=== PATIENT | female | born 1980 | race Caucasian/White ===

== ENCOUNTER 2018-11-29 03:43 | Emergency (ER) | payer SELFPAY ==
[~2018-11-29] VITALS: Ht 160 cm; Wt 59.0 kg
[2018-11-29 03:46] VITALS: BP 104/74; Ht 160 cm; Wt 59.0 kg
[2018-11-29 04:35] LABS: BASOPHILS 0.2 % (0-2); EOSINOPHILS 1.3 % (0-7); HEMATOCRIT 40.7 % (36.0-48.0); HEMOGLOBIN 13.1 g/dL (12-16); LYMPHOCYTES 30.8 % (15-50); MCH 26.7 pg (26.0-34.0); MCHC 32.2 g/dL (31.0-37.0); MCV 83.1 fL (80.0-100.0); MEAN PLATELET VOLUME 9.5 fL (7.4-10.4); MONOCYTES 10.6 % (2-11); NEUTROPHILS 57.1 % (40-80); PLATELET COUNT 297 10x3/uL (130-400); RDW 16.5 % (11.5-14.5); WBC 4.5 10x3/uL (4.8-10.8)
[2018-11-29 04:55] LABS: ANION GAP 12.5 mmol/L (8-16); BILIRUBIN - TOTAL 0.45 mg/dL (0.2-1.3); CALCIUM 8.7 mg/dL (8.5-10.1); CARBON DIOXIDE 28.9 mmol/L (21.0-32.0); POTASSIUM - SERUM 3.4 mmol/L (3.5-5.1)
== END 2018-11-29 05:03 | disposition left against medical advice (07) ==
LOC: D.ER 03:43
PROVIDERS: Family Medicine
DX: F15.129 Other stimulant abuse with intoxication, unspecified (principal)

== ENCOUNTER 2019-06-10 07:04 | Emergency (ER) | payer SELFPAY ==
[~2019-06-10] VITALS: Ht 160 cm; Wt 67.7 kg
[2019-06-10 07:05] VITALS: Ht 160 cm; Wt 67.7 kg
[2019-06-10 07:22] LABS: BASOPHILS 0.4 % (0-2); HEMATOCRIT 40.5 % (36.0-48.0); HEMOGLOBIN 12.7 g/dL (12-16); IMMATURE GRANULOCYTES 0.4 % (0-5); LYMPHOCYTES 41.3 % (15-50); MCH 26.3 pg (26.0-34.0); MCHC 31.4 g/dL (31.0-37.0); MEAN PLATELET VOLUME 9.5 fL (7.4-10.4); MONOCYTES 10.6 % (2-11); NEUTROPHILS 45.3 % (40-80); PLATELET COUNT 299 10x3/uL (130-400); RBC 4.82 10x6/uL (4.00-5.40); RDW 16.1 % (11.5-14.5); WBC 5.4 10x3/uL (4.8-10.8)
[2019-06-10 07:39] LABS: CALC OSMOLALITY 271 mosm/kg (275-300); CALCIUM 8.5 mg/dL (8.5-10.1); CARBON DIOXIDE 21.7 mmol/L (21.0-32.0); CHLORIDE - SERUM 103 mmol/L (98-107); CREATININE - SERUM 0.7 mg/dL (0.6-1.3); GLUCOSE 87 mg/dL (74-106); POTASSIUM - SERUM 3.6 mmol/L (3.5-5.1); SODIUM 137 mmol/L (136-145); UREA NITROGEN 10 mg/dL (7-18); eGFR NON AFRICAN AMERICAN > 90 mL/min (90-120)
[2019-06-10 07:45] LABS: ALKALINE PHOSPHATASE 62 U/L (30-120); ALT (SGPT) 25 U/L (10-68); BILIRUBIN - TOTAL 0.16 mg/dL (0.2-1.3); LIPASE 168 U/L (73-393); PROTEIN - SERUM 7.5 g/dL (6.4-8.2)
[2019-06-10 07:50] LABS: UDS - AMPHET NEGATIVE QUAL (NEGATIVE); UDS - BARB NEGATIVE QUAL (NEGATIVE); UDS - BENZO NEGATIVE QUAL (NEGATIVE); UDS - COCAINE NEGATIVE QUAL (NEGATIVE); UDS - OPIATE NEGATIVE QUAL (NEGATIVE); UDS - PCP NEGATIVE QUAL (NEGATIVE); UDS - THC NEGATIVE QUAL (NEGATIVE)
[2019-06-10 07:56] LABS: BILIRUBIN NEGATIVE (NEGATIVE); GLUCOSE NEGATIVE (NEGATIVE); KETONE NEGATIVE (NEGATIVE); NITRITE NEGATIVE (NEGATIVE); SPECIFIC GRAVITY 1.005 (1.005-1.020); UROBILINOGEN NORMAL (NORMAL)
[2019-06-10 11:30] VITALS: BP 90/64
== END 2019-06-10 12:06 | disposition home or self-care (01) ==
LOC: D.ER 07:04
PROVIDERS: Family Medicine
DX: F10.129 Alcohol abuse with intoxication, unspecified (principal); Z72.0 Tobacco use

== ENCOUNTER 2019-10-11 19:08 | Emergency (ER) | payer SELFPAY ==
[~2019-10-11] VITALS: Ht 160 cm; Wt 62.7 kg
[2019-10-11 19:13] VITALS: Ht 160 cm; Wt 62.7 kg
[2019-10-11 19:44] LABS: BASOPHILS 0.1 % (0-2); EOSINOPHILS 1.6 % (0-7); HEMATOCRIT 31.9 % (36.0-48.0); IMMATURE GRANULOCYTES 0.1 % (0-5); LYMPHOCYTES 19.6 % (15-50); MCHC 31.3 g/dL (31.0-37.0); MCV 82.9 fL (80.0-100.0); MEAN PLATELET VOLUME 9.7 fL (7.4-10.4); MONOCYTES 9.9 % (2-11); NEUTROPHILS 68.7 % (40-80); PLATELET COUNT 259 10x3/uL (130-400); RBC 3.85 10x6/uL (4.00-5.40); RDW 16.9 % (11.5-14.5); WBC 7.3 10x3/uL (4.8-10.8)
[2019-10-11 19:52] LABS: CALC OSMOLALITY 278 mosm/kg (275-300); CALCIUM 7.8 mg/dL (8.5-10.1); CARBON DIOXIDE 27.5 mmol/L (21.0-32.0); CHLORIDE - SERUM 106 mmol/L (98-107); CREATININE - SERUM 0.7 mg/dL (0.6-1.3); GLUCOSE 112 mg/dL (74-106); POTASSIUM - SERUM 3.5 mmol/L (3.5-5.1); SODIUM 141 mmol/L (136-145); UREA NITROGEN 5 mg/dL (7-18); eGFR NON AFRICAN AMERICAN > 90 mL/min (90-120)
[2019-10-11 20:06] LABS: ALKALINE PHOSPHATASE 57 U/L (30-120); ALT (SGPT) 34 U/L (10-68); BILIRUBIN - TOTAL 0.16 mg/dL (0.2-1.3); C-REACTIVE PROTEIN 2.9 mg/dL (0.0-0.9); CREATINE KINASE 94 UL (21-215); LIPASE 94 U/L (73-393); MAGNESIUM - SERUM 1.7 mg/dL (1.8-2.4); PRO BNP 194 pg/mL (0-125); PROTEIN - SERUM 6.4 g/dL (6.4-8.2); THYROID STIMULATING HORMONE 0.77 uIU/mL (0.36-3.74)
[2019-10-11 20:12] LABS: TROPONIN-I < 0.017 ng/mL (0.000-0.060)
[2019-10-11] MEDS ORDERED: CORTISPORIN OTI10 M1 EACH EAR (21:25)
[2019-10-11 22:24] VITALS: BP 118/74
[2019-10-11 22:29] LABS: BILIRUBIN NEGATIVE (NEGATIVE); GLUCOSE NEGATIVE (NEGATIVE); KETONE NEGATIVE (NEGATIVE); NITRITE NEGATIVE (NEGATIVE); UROBILINOGEN NORMAL (NORMAL)
[2019-10-11 22:31] LABS: HCG URINE NEGATIVE (NEGATIVE)
[2019-10-11 22:41] LABS: UDS - AMPHET POSITIVE QUAL (NEGATIVE); UDS - BARB NEGATIVE QUAL (NEGATIVE); UDS - BENZO NEGATIVE QUAL (NEGATIVE); UDS - COCAINE NEGATIVE QUAL (NEGATIVE); UDS - OPIATE NEGATIVE QUAL (NEGATIVE); UDS - PCP NEGATIVE QUAL (NEGATIVE); UDS - THC NEGATIVE QUAL (NEGATIVE)
== END 2019-10-11 22:24 | disposition home or self-care (01) ==
LOC: D.ER 19:08
PROVIDERS: Family Medicine
DX: R41.82 Altered mental status, unspecified (principal); H60.90 Unspecified otitis externa, unspecified ear; R06.02 Shortness of breath

== ENCOUNTER 2019-10-12 23:33 | Emergency (ER) | payer SELFPAY ==
[~2019-10-12] VITALS: Ht 160 cm; Wt 62.7 kg
[~2019-10-12 23:33] MED LIST: CORTISPORIN OTI10 M1 EACH EAR
[2019-10-12 23:45] VITALS: Ht 160 cm; Wt 62.7 kg
[2019-10-13 02:50] VITALS: BP 132/87
== END 2019-10-13 02:50 | disposition home or self-care (01) ==
LOC: D.ER 23:33
DX: R51 Headache (principal); M54.9 Dorsalgia, unspecified